=== PATIENT | male | born 1990 ===

== ENCOUNTER 2017-02-04 09:57 | Emergency (ER) | payer OTHER ==
[2017-02-04 10:32] VITALS: BP 120/70
--- NOTE | 2017-02-04 10:40 | UC ---
Upper Extremity HPI - HPI Summary HPI Summary: Pt presents with edema and swelling to right index finger. Pt states 9pm was playing basketball and injured finger when reached for ball. unable to continue playing. Pt with pain with flexion at MCP - states feels limited second to swelling and pain, not mechanical. no other injuries No analgesia taken Pt RHD Pt's medications reviewed this visit - History of Current Complaint Chief Complaint: UCUpperExtremity Stated Complaint: FINGER INJURY Time Seen by Provider: 02/04/17 10:37 Hx Obtained From: Patient Onset/Duration: Sudden Onset Severity Initially: Mild Severity Currently: Mild Character: Stiffness Aggravating Factor(s): Movement, Flexion Alleviating Factor(s): Nothing Associated Signs And Symptoms: Positive: Swelling, Bruising - Allergies/Home Medications Allergies/Adverse Reactions: Allergies Allergy/AdvReac Type Severity Reaction Status Date / Time Dextromethorphan Allergy Tachycardia Verified 02/04/17 10:26 [From Mucinex DM] Guaifenesin [From Mucinex DM] Allergy Tachycardia Verified 02/04/17 10:26 Yellow Dye [From Mucinex DM] Allergy Tachycardia Verified 02/04/17 10:26 PMH/Surg Hx/FS Hx/Imm Hx Previously Healthy: Yes - Surgical History Surgical History: None Surgery Procedure, Year, and Place: wisdom teeth - Family History Known Family History: Positive: Hypertension - Social History Alcohol Use: Rare Substance Use Type: Marijuana Substance Use Comment - Amount & Last Used: occ usage Smoking Status (MU): Heavy Every Day Tobacco Smoker Type: Cigarettes Amount Used/How Often: 1/2ppd Length of Time of Smoking/Using Tobacco: since age 21 Have You Smoked in the Last Year: Yes - Immunization History Most Recent Influenza Vaccination: fall 2012 Review of Systems Constitutional: Negative Skin: Bruising - base 2nd right Motor: Negative Neurovascular: Negative Musculoskeletal: Decreased ROM, Edema Neurological: Negative All Other Systems Reviewed And Are Negative: Yes Physical Exam Triage Information Reviewed: Yes Appearance: Well-Appearing, No Pain Distress, Well-Nourished Vital Signs: Initial Vital Signs Temp 98.8 F 02/04/17 10:20 Pulse 83 02/04/17 10:20 Resp 14 02/04/17 10:20 BP 120/70 02/04/17 10:20 Pulse Ox 100 02/04/17 10:20 Vital Signs Reviewed: Yes Eyes: Negative: Discharge ENT: Positive: Hearing grossly normal Neck: Positive: Supple Respiratory: Positive: No respiratory distress, No accessory muscle use Cardiovascular: Positive: Other: - 2+ radial, 2+ ulnar CBT < 2 sec Musculoskeletal: Positive: Other: - + flex/ext DIP, PIP against resistance Pt with limited flexion at MCP second to edema Pt with direct palp lateral aspect PIP no crepitus Mild discomfort with palp of palm Neurological: Positive: Other: - + gross sensation throughout Skin: Positive: Other - + edema and ecchymosis volar aspect base of 2nd finger mild ecchymosis extension to plamar surface at based 2nd Re-Evaluation - Re-Evaluation First Eval Comment: reviewed xray with pt. splint. hand referral. ice. elevate Upper Extremity Course/Dx - Course Course Of Treatment: Pt with swelling and ecchymosis volar aspect right index s/ p basketball injury last night. Pt with limited flexion at MCP second to edema. Will image. analgesia. anticipate splint. dif includes: fx, sprain, strain, contusion - Differential Dx/Diagnosis Provider Diagnoses: avulsion fracture. contusion Discharge - Discharge Plan Condition: Stable Disposition: HOME Patient Education Materials: Finger Sprain (ED), Avulsion Fracture (ED) Referrals: Nabil Burt MD [Medical Doctor] - Cecilia Angela NP [Primary Care Provider] - Additional Instructions: - Wear finger splint as much as possible until you are seen in follow-up by the hand specialist - Okay to alternate ibuprofen (advil, motrin) and tylenol every 3 hours for pain. Take with food - Apply ice (wrapped in a towel) 20 minutes at a time, 2-3 times a day for pain and swelling. - Contact the hand surgeon to schedule a follow-up appointment this week. Contact the hand surgeon or return with questions or concerns
[2017-02-04] MEDS ORDERED: Ibuprofen TAB* 200 MG PO ONE (10:46)
--- NOTE | 2017-02-04 11:13 | RAD ---
INDICATION: Pain and edema involving the volar aspect of the proximal right index finger and metacarpal phalangeal area after a basketball injury COMPARISON: None. TECHNIQUE: 2 views of the right hand and 3 views of the right index finger were obtained. FINDINGS: Depicted on the lateral view of the right index finger there is a tiny bony fragment immediately proximal adjacent to the proximal volar corner of the right index finger middle phalanx. Remaining visualized bones are intact and appropriately aligned. IMPRESSION: Possible avulsion fracture involving the volar proximal corner of the right index finger middle phalanx. Please correlate to the focality of the patient's pain. If the patient's symptoms persist, follow-up imaging is recommended.
== END 2017-02-04 11:28 | disposition home or self-care (01) ==
LOC: UCEAST 09:57
DX: S60.021A Contusion of right index finger without damage to nail, initial encounter (principal); F17.210 Nicotine dependence, cigarettes, uncomplicated; W21.00XA Struck by hit or thrown ball, unspecified type, initial encounter; W21.05XA Struck by basketball, initial encounter; Y92.838 Other recreation area as the place of occurrence of the external cause; Z88.8 Allergy status to other drugs, medicaments and biological substances
CPT/HCPCS: 73140; 99212; A9270-GY; G0463